=== PATIENT | female | born 1965 | race African-American/Black ===

== ENCOUNTER 2021-11-29 10:33 | Observation (INO) ==
[2021-11-29] MEDS ORDERED: hydrALAZINE 20 MG/1 ML VIAL IV STA (11:37)
[2021-11-29 11:48] LABS: Basophils % 0.4 % (0.0-0.8); Eosinophils # 0.1 10*3/uL (0.0-0.87); Eosinophils % 1.7 % (0.00-10.9); Hematocrit 38.9 VOL% (35.7-47.0); Hemoglobin 13.2 GM/DL (12.0-16.0); Immature Granulocytes % 0.4 %; Immature Granulocytes Absolute 0.03 #; Lymphocytes # 1.9 10*3/uL (1.4-4.0); Lymphocytes % 25.9 % (21.3-54.2); Mean Corpuscular HGB Conc 33.9 GM/DL (32-36); Mean Corpuscular Volume 93.1 FL (87-102); Mean Platelet Volume 10.2 FL (9.6-12.0); Neutrophils % 61.6 % (38.7-73.9); Platelet Count 261 T/CUMM (130-400); Red Blood Count 4.18 MC/CUMM (3.8-5.5); Red Cell Distribution Width 13.5 % (9.3-17.3); White Blood Count 7.2 T/CUMM (4-12)
[2021-11-29] MEDS ORDERED: niCARdipine INJ 25 MG in SODIUM CHLORIDE 0.9% 240 ML IV SCH (12:00)
[2021-11-29 12:12] LABS: Albumin 3.4 G/DL (3.4-5.0); Bilirubin,Total 0.9 MG/DL (0.20-1.00); Calcium 10.9 MG/DL (8.5-10.1); Osmolality,Calculated 271.8 MOS/KG (273-304); Potassium 2.6 MMOL/L (3.5-5.1)
[2021-11-29] MEDS ORDERED: POTASSIUM CHLORIDE 20 MEQ TABLET PO STA (12:14)
[2021-11-29] MEDS ORDERED: LABETALOL 20 MG/4 ML SYRINGE IV STA (12:56)
[2021-11-29 13:25] LABS: Bilirubin,Urine Negative (Negative); Blood, Urine Large mg/dL (Negative); Glucose,Urine (UA) 50 mg/dL (Negative); Ketones,Urine Negative (Negative); Nitrite,Urine Negative (Negative); Protein,Urine >=500 MG/DL; RBC,Urine 25962 /HPF (0-4); Urine Appearance CLOUDY (Clear); Urine Color Amber (Yellow); Urine Specific Gravity 1.009 (1.001-1.035); Urine Urobilinogen < 2.0 EU/DL (<2.0)
[2021-11-29] MEDS ORDERED: amLODIPine 5 MG TABLET PO STA (14:50)
[2021-11-29 15:16] LABS: INR 1.1; PT Patient Result 11.9 SECS (10.5-12.0)
[2021-11-29] MEDS ORDERED: GLUCAGON 1 MG VIAL IM PRN (16:48)
[2021-11-29] MEDS ORDERED: DEXTROSE 10% 250 ML BAG IV PRN (16:48)
[2021-11-29] MEDS ORDERED: ACETAMINOPHEN 325 MG TABLET PO PRN (16:48)
[2021-11-29] MEDS ORDERED: ONDANSETRON 4 MG/2 ML VIAL IV PRN (16:48)
[2021-11-29] MEDS ORDERED: lisinopriL 10 MG TABLET PO SCH (16:55)
[2021-11-29] MEDS: lisinopriL 20 MG TABLET PO SCH (18:20)
[2021-11-29] MEDS: LACTULOSE 20 GM/30 ML UDCUP PO SCH (18:26)
[2021-11-29] MEDS: SODIUM CHLOR 0.9% KCL 40 MEQ 40 MEQ/1,000 ML BAG IV SCH (18:29)
[2021-11-29] MEDS: hydrALAZINE 20 MG/1 ML VIAL IV PRN (18:39)
[2021-11-29] MEDS ORDERED: METOPROLOL TARTRATE 5 MG/5 ML VIAL IV STA (19:28)
[2021-11-29] MEDS: PIPERACILLIN/TAZOBACTAM 3,375 MG in SODIUM CHLORIDE 0.9% 100 ML IV SCH (20:01)
[2021-11-29] MEDS ORDERED: niCARdipine 25 MG/10 ML VIAL IV ONE (21:11)
[2021-11-29] MEDS: DOCUSATE SODIUM 100 MG CAPSULE PO SCH (21:18)
[2021-11-29] MEDS: niCARdipine INJ 25 MG in SODIUM CHLORIDE 0.9% 240 ML IV SCH (21:31)
[2021-11-30] MEDS: LEVOFLOXACIN INJ 750 MG/150 ML PREMIX IV SCH (00:48)
[2021-11-30] MEDS: METOPROLOL TARTRATE 5 MG/5 ML VIAL IV SCH ×4 (00:52→17:47)
[2021-11-30] MEDS: VANCOMYCIN INJ 1,000 MG in SODIUM CHLORIDE 0.9% 250 ML IV SCH ×2 (02:40→17:23)
[2021-11-30] MEDS: PIPERACILLIN/TAZOBACTAM 3,375 MG in SODIUM CHLORIDE 0.9% 100 ML IV SCH ×3 (04:27→20:49)
[2021-11-30] MEDS: LACTULOSE 20 GM/30 ML UDCUP PO SCH ×2 (04:27→17:23)
[2021-11-30 06:40] LABS: Basophils % 0.2 % (0.0-0.8); Eosinophils % 0.2 % (0.00-10.9); Hematocrit 34.9 VOL% (35.7-47.0); Hemoglobin 11.5 GM/DL (12.0-16.0); Immature Granulocytes % 0.4 %; Immature Granulocytes Absolute 0.03 #; Lymphocytes # 1.6 10*3/uL (1.4-4.0); Lymphocytes % 19.4 % (21.3-54.2); Mean Corpuscular Volume 93.3 FL (87-102); Mean Platelet Volume 10.3 FL (9.6-12.0); Monocytes % 11.7 % (1.7-12.7); Neutrophils % 68.1 % (38.7-73.9); Platelet Count 232 T/CUMM (130-400); Red Blood Count 3.74 MC/CUMM (3.8-5.5); Red Cell Distribution Width 13.7 % (9.3-17.3); White Blood Count 8.2 T/CUMM (4-12)
[2021-11-30 07:07] LABS: Bilirubin,Total 1.2 MG/DL (0.20-1.00); Calcium 10.2 MG/DL (8.5-10.1); Osmolality,Calculated 282.1 MOS/KG (273-304); Potassium 2.8 MMOL/L (3.5-5.1); Total Protein 7.8 G/DL (6.4-8.2)
[2021-11-30] MEDS ORDERED: MAGNESIUM SULF RIDER 2 GM/50 ML PREMIX IV ONE (08:08)
[2021-11-30] MEDS ORDERED: POTASSIUM CHLORIDE 20 MEQ TABLET PO ONE (08:08)
[2021-11-30] MEDS ORDERED: INFLUENZA VIRUS VACCINE 0.5 ML SYRINGE IM ONE (09:00)
[2021-11-30] MEDS: amLODIPine 5 MG TABLET PO SCH (09:49)
[2021-11-30] MEDS: PANTOPRAZOLE 40 MG TABLET PO SCH (09:50)
[2021-11-30] MEDS: lisinopriL 20 MG TABLET PO SCH (09:50)
[2021-11-30] MEDS: DOCUSATE SODIUM 100 MG CAPSULE PO SCH ×2 (09:50→20:49)
[2021-11-30] MEDS: SODIUM CHLOR 0.9% KCL 40 MEQ 40 MEQ/1,000 ML BAG IV SCH ×2 (10:57→13:56)
[2021-11-30] MEDS ORDERED: INDIGO CARMINE 5 ML AMP IV ONE ×2 (13:29→15:00)
[2021-12-01] MEDS: METOPROLOL TARTRATE 5 MG/5 ML VIAL IV SCH ×4 (00:21→18:04)
[2021-12-01] MEDS: LEVOFLOXACIN INJ 750 MG/150 ML PREMIX IV SCH (02:12)
[2021-12-01] MEDS: VANCOMYCIN INJ 1,000 MG in SODIUM CHLORIDE 0.9% 250 ML IV SCH (04:03)
[2021-12-01] MEDS: LACTULOSE 20 GM/30 ML UDCUP PO SCH ×2 (05:47→18:04)
[2021-12-01] MEDS: PIPERACILLIN/TAZOBACTAM 3,375 MG in SODIUM CHLORIDE 0.9% 100 ML IV SCH (05:49)
[2021-12-01] MEDS: niCARdipine INJ 25 MG in SODIUM CHLORIDE 0.9% 240 ML IV SCH (08:29)
[2021-12-01] MEDS: SODIUM CHLOR 0.9% KCL 40 MEQ 40 MEQ/1,000 ML BAG IV SCH ×2 (08:29→09:35)
[2021-12-01 09:02] LABS: Calcium 10.4 MG/DL (8.5-10.1); Osmolality,Calculated 273.7 MOS/KG (273-304); Potassium 2.8 MMOL/L (3.5-5.1)
[2021-12-01] MEDS ORDERED: POTASSIUM CHLORIDE 20 MEQ TABLET PO ONE (09:17)
[2021-12-01] MEDS: lisinopriL 20 MG TABLET PO SCH (09:35)
[2021-12-01] MEDS: hydrALAZINE 20 MG/1 ML VIAL IV PRN (09:35)
[2021-12-01] MEDS: DOCUSATE SODIUM 100 MG CAPSULE PO SCH (09:35)
[2021-12-01] MEDS: PANTOPRAZOLE 40 MG TABLET PO SCH (09:35)
[2021-12-01] MEDS: amLODIPine 5 MG TABLET PO SCH (09:35)
[2021-12-01] MEDS ORDERED: METOPROLOL SUCCINATE XL 50 MG TABLET PO SCH (15:40)
[2021-12-01 18:16] VITALS: BP 191/90
== END 2021-12-01 18:33 | disposition home or self-care (01) ==
LOC: N.ED 10:33 → N.EDINP 10:33 → N.TELES 19:29
PROVIDERS: ADMIT Internal Medicine; ATTEND Internal Medicine